=== PATIENT | male | born 1990 | race Caucasian/White ===

== ENCOUNTER 2016-11-30 06:05 | Emergency (ER) | payer OTHER | END 2016-11-30 08:32 | disposition home or self-care (01) | LOC: CED 06:05 | DX: L02.211 Cutaneous abscess of abdominal wall (principal); F17.210 Nicotine dependence, cigarettes, uncomplicated; Z88.0 Allergy status to penicillin; Z88.1 Allergy status to other antibiotic agents | CPT/HCPCS: 10060; 96372; 99283 ==